=== PATIENT | male | born 2000 | race African-American/Black ===

== ENCOUNTER 2023-01-15 08:22 | Emergency (ER) | payer OTHER ==
[~2023-01-15] VITALS: Ht 185.4 cm; Wt 77.1 kg
[2023-01-15 08:22] VITALS: BP_SYST 142; PULSE 89; RESP 18; TEMP 99.1; O2SAT 98
[2023-01-15] MEDS ORDERED: HYDROcodone/ACETAMIN 5-325 MG TAB (NORCO/ VICODIN) PO ONE (08:45)
[2023-01-15] MEDS ORDERED: NABU-140 PO (10:02)
== END 2023-01-15 10:00 | disposition home or self-care (01) ==
LOC: SED 08:22
DX: M23.92 Unspecified internal derangement of left knee (principal); Z79.899 Other long term (current) drug therapy
CPT/HCPCS: 73564; 99283